=== PATIENT | male | born 1965 | race Caucasian/White ===

== ENCOUNTER 2016-11-01 18:37 | Emergency (ER) | payer BC, OTHER ==
[2016-11-01] MEDS ORDERED: Ketorolac 60 MG/2 ML SDV IM ONE (19:17)
--- NOTE | 2016-11-01 19:35 | EDM.PDOC ---
ED HPI GENERAL MEDICAL PROBLEM - General Chief Complaint: Back Pain or Injury Stated Complaint: BACK PAIN Time Seen by Provider: 11/01/16 19:05 - History of Present Illness INITIAL COMMENTS - FREE TEXT/NARRATIVE: HISTORY AND PHYSICAL: History of present illness: Patient 51-year-old white male presents status post injury to his left upper back this occurred this past Tuesday when he was wrestling playfully with another and was thrown onto his back he denies a tremor concern denies head or neck pain or trauma denies numbness weakness states is worse with movement and deep breaths Review of systems: As per history of present illness and below otherwise all systems reviewed and negative. Past medical history: As per history of present illness and as reviewed below otherwise noncontributory. Surgical history: As per history of present illness and as reviewed below otherwise noncontributory. Social history: No reported history of drug or alcohol abuse. Family history: As per history of present illness and as reviewed below otherwise noncontributory. Physical exam: HEENT: Atraumatic, normocephalic, pupils reactive, negative for conjunctival pallor or scleral icterus, mucous membranes moist, throat clear, neck supple, nontender, trachea midline. Lungs: Clear to auscultation, breath sounds equal bilaterally, chest nontender. Heart: S1S2, regular, negative for clicks, rubs, or JVD. Abdomen: Soft, nondistended, nontender. Negative for masses or hepatosplenomegaly. Negative for costovertebral tenderness. Pelvis: Stable nontender. Genitourinary: Deferred. Rectal: Deferred. Extremities: Atraumatic, negative for cords or calf pain. Neurovascular unremarkable. Neuro: Awake, alert, oriented. Cranial nerves II through XII unremarkable. Cerebellum unremarkable. Motor and sensory unremarkable throughout. Exam nonfocal. Back: Patient is a mild paravertebral tenderness at the level of the upper thoracic spine and also mild discomfort left superior posterior ribs no crepitation or point tenderness neurovascular exam seems unremarkable Diagnostics: X-ray thoracic spine left ribs with chest Therapeutics: Toradol 60 mg IM Impression: #1 upper back/lower left rib ( blunt force trauma) Definitive disposition and diagnosis as appropriate pending reevaluation and review of above. left shoulder Pain Score (Numeric/FACES): 4 - Related Data Allergies Allergy/AdvReac Type Severity Reaction Status Date / Time No Known Allergies Allergy Verified 12/20/16 12:40 [facility] Home Meds: Home Meds Cephalexin 500 mg PO Q6HR #30 capsule 08/17/16 [Rx] Past Medical History - Past Health History Medical/Surgical History: Denies Medical/Surgical History - Infectious Disease History Infectious Disease History: Reports: Chicken pox - Past Surgical History Musculoskeletal Surgical History: Reports: Other (see below) Other Musculoskeletal Surgeries/Procedures:: left hand surgery Social & Family History - Family History Family Medical History: Noncontributory - Tobacco Use Smoking Status *Q: Never Smoker Second Hand Smoke Exposure: No - Caffeine Use Caffeine Use: Reports: Coffee - Alcohol Use Days Per Week of Alcohol Use: 7 Number of Drinks Per Day: 1 Total Drinks Per Week: 7 - Recreational Drug Use Recreational Drug Use: No ED ROS GENERAL - Review of Systems Review Of Systems: ROS reveals no pertinent complaints other than HPI. ED EXAM, GENERAL - Physical Exam Exam: See Below (See dictation) Course - Vital Signs Last Recorded V/S: Last Vital Signs Temp 36.9 C 11/01/16 18:59 Pulse 85 11/01/16 18:59 Resp 16 11/01/16 18:59 BP 144/88 H 11/01/16 18:59 Pulse Ox 96 11/01/16 18:59 - Orders/Labs/Meds Orders: Active Orders 24 hr Category Date Time Status Chest 2V [CR] Stat Exams 11/01/16 19:15 Ordered Ribs 2V wo Chest Lt [CR] Stat Exams 11/01/16 19:15 Ordered Thoracic Spine 2V [CR] Stat Exams 11/01/16 19:17 Ordered Meds: Medications Discontinued Medications Generic Name Dose Route Start Last Admin Trade Name Callumq PRN Reason Stop Dose Admin Ketorolac Tromethamine 60 mg 11/01/16 19:17 Toradol IM 11/01/16 19:18 ONETIME ONE Departure - Departure Time of Disposition: 19:34 Disposition: Home, Self-Care 01 Condition: good Clinical Impression: Rib injury, Upper back pain, Contusion Forms: ED Department Discharge Additional Instructions: The following information is given to patients seen in the emergency department who are being discharged to home. This information is to outline your options for follow-up care. We provide all patients seen in our emergency department with a follow-up referral. The need for follow-up, as well as the timing and circumstances, are variable depending upon the specifics of your emergency department visit. If you don't have a primary care physician on staff, we will provide you with a referral. We always advise you to contact your personal physician following an emergency department visit to inform them of the circumstance of the visit and for follow-up with them and/or the need for any referrals to a consulting specialist. The emergency department will also refer you to a specialist when appropriate. This referral assures that you have the opportunity for followup care with a specialist. All of these measure are taken in an effort to provide you with optimal care, which includes your followup. Under all circumstances we always encourage you to contact your private physician who remains a resource for coordinating your care. When calling for followup care, please make the office aware that this follow-up is from your recent emergency room visit. If for any reason you are refused follow-up, please contact the [facility] emergency department at and asked to speak to the emergency department charge nurse. Kathrynrosyn as prescribed follow up primary medical doctor one to 2 days return as needed as discussed - My Orders Last 24 Hours: My Active Orders 11/01/16 19:15 Chest 2V [CR] Stat Ribs 2V wo Chest Lt [CR] Stat 11/01/16 19:17 Thoracic Spine 2V [CR] Stat - Assessment/Plan Last 24 Hours: My Active Orders 11/01/16 19:15 Chest 2V [CR] Stat Ribs 2V wo Chest Lt [CR] Stat 11/01/16 19:17 Thoracic Spine 2V [CR] Stat
[2016-11-01 20:15] VITALS: BP 135/90
--- NOTE | 2016-11-02 14:41 | CR ---
EXAM DATE: 11/01/16 PATIENT'S AGE: 51 Patient: GEOFFREY NIXON Facility: [place], [place] Site . Site : 1965 Study: XRay Chest [id number]/6/2017 7:41:38 PM Ordering Physician: Alexandra Bliss Final Report: HISTORY: Pain after wrestling on Tuesday. Pain starts between shoulder blades and absence of IV. FINDINGS: PA and lateral chest radiographs demonstrate a normal cardiac silhouette. Pulmonary vasculature is free cephalization. No consolidation is seen. There is identified in the posterior left costophrenic angle. The right is sharp. No pneumothorax is appreciated. There is cortical disruption in the anterior 4th rib. Lucency seen through the posterior left 5th rib. IMPRESSION: 1. Slight blunting of the posterior left costophrenic angle consistent with a tiny pleural effusion. 2. Nondisplaced fractures of the posterior left 5th and anterior left 4th ribs. Dictated by Flory Cook MD @ 11/01/2016 7:55:16 PM Dictated by: Flory Cook MD @ 11/01/2016 19:59:05 (Electronic Signature) Report Signed by Proxy and Original Signed Document filed in the Medical Record. [facility]
--- NOTE | 2016-11-02 14:47 | CR ---
EXAM DATE: 11/01/16 PATIENT'S AGE: 51 Patient: GEOFFREY NIXON Facility: [place], [place] Site . Site : 1965 Study: XRay Chest RIBS [id number]/6/2017 7:41:57 PM Ordering Physician: Alexandra Bliss Final Report: HISTORY: Pain after wrestling on Tuesday, pain between shoulder blades and wraps around chest to front of body. FINDINGS: Three views of the left ribs demonstrate a subtle cortical disruption of the posterior left 5th rib. There is cortical break through of the anterior left 4th rib. No pneumothorax is seen. IMPRESSION: Nondisplaced fractures of the anterior left 4th and posterior left 5th ribs. Dictated by Flory Cook MD @ 11/01/2016 7:56:40 PM Dictated by: Flory Cook MD @ 11/01/2016 19:57:09 (Electronic Signature) Report Signed by Proxy and Original Signed Document filed in the Medical Record. [facility]
--- NOTE | 2016-11-02 14:48 | CR ---
EXAM DATE: 11/01/16 PATIENT'S AGE: 51 Patient: GEOFFREY NIXON Facility: [place], [place] Site . Site : 1965 Study: XRay Spine Thoracic [id number]/6/2017 7:42:13 PM Ordering Physician: Alexandra Bliss Final Report: HISTORY: Pain after wrestling on Tuesday, pain starts between shoulder blades and wraps around chest to front of the body. FINDINGS: AP and lateral views of the thoracic spine demonstrate degenerative changes of the discs of the mid and lower thoracic spine. Vertebral body heights are maintained. No compression fracture is identified. 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 Dictated by Flory Cook MD @ 11/01/2016 7:58:56 PM Dictated by: Flory Cook MD @ 11/01/2016 19:59:00 (Electronic Signature) Report Signed by Proxy and Original Signed Document filed in the Medical Record. [facility]
== END 2016-11-01 20:26 | disposition home or self-care (01) ==
LOC: MW.ED 18:37
DX: S20.222A Contusion of left back wall of thorax, initial encounter (principal); Z98.890 Other specified postprocedural states; Y93.72 Activity, wrestling
CPT/HCPCS: 71020; 71100; 72070; 96372; 99283; J1885

== ENCOUNTER → 2016-11-26 | Outpatient (CLI) | payer OTHER ==
[2016-11-26 10:22] LABS: CHLORIDE,CL 106 mmol/L (98-110); SODIUM,NA 139 mmol/L (136-146)
== END ==
LOC: MW.CHRC 09:42
PROVIDERS: ATTEND Family Medicine
DX: Z00.00 Encounter for general adult medical examination without abnormal findings (principal); R50.9 Fever, unspecified
CPT/HCPCS: 36415; 80053; 80061; 85025; G0103

== ENCOUNTER → 2016-12-14 | Outpatient (CLI) | payer OTHER | END | disposition home or self-care (01) | LOC: MW.CHRC 09:00 | PROVIDERS: ATTEND Family Medicine | DX: R53.83 Other fatigue (principal) | CPT/HCPCS: 36415; 82607; 82652; 84402; 84403 ==

== ENCOUNTER 2017-02-07 07:43 | Day surgery (SDC) | payer OTHER ==
[~2017-02-07 07:43] MED LIST: Lactated Ringers 1,000 ML IV SCH; Midazolam 1 MG/ML 2 ML SDV ONE; Propofol 200 MG/20 ML SDV ONE; fentaNYL 100 MCG/2 ML SDV ONE
--- NOTE | 2017-02-07 08:23 | PCM.PREANE ---
Preanesthetic Assessment - Anesthesia/Transfusion/Family Hx Anesthesia History: Prior Anesthesia Without Reaction Family History of Anesthesia Reaction: No Transfusion History: No Prior Transfusion(s) Intubation History: Unknown - Review of Systems General: No Symptoms Pulmonary: No Symptoms Cardiovascular: No Symptoms Gastrointestinal: No symptoms Neurological: No Symptoms Other: Reports: None - Physical Assessment O2 Sat by Pulse Oximetry: 97 Respiratory Rate: 16 Vital Signs: Last Vital Signs Temp 36.3 C 02/07/17 08:07 Pulse 73 02/07/17 08:07 Resp 16 02/07/17 08:07 BP 127/87 02/07/17 08:07 Pulse Ox 97 02/07/17 08:07 Height: 1.78 m Weight: 90.718 kg ASA Class: 2 Mental Status: Alert & Oriented x3 Airway Class: Mallampati = 1 Dentition: Reports: Normal Dentition Thyro-Mental Finger Breadths: 3 Mouth Opening Finger Breadths: 3 ROM/Head Extension: Full Lungs: Clear to auscultation, Normal respiratory effort Cardiovascular: Regular Rate, Regular Rhythm - Allergies Allergies/Adverse Reactions: Allergies Allergy/AdvReac Type Severity Reaction Status Date / Time No Known Allergies Allergy Verified 08/17/16 12:40 RUST - Blood Blood Available: No - Anesthesia Plan Pre-Op Medication Ordered: None - Acknowledgements Anesthesia Type Planned: MAC Pt an Appropriate Candidate for the Planned Anesthesia: Yes Alternatives and Risks of Anesthesia Discussed w Pt/Guardian: Yes Pt/Guardian Understands and Agrees with Anesthesia Plan: Yes PreAnesthesia Questionnaire - Past Health History Medical/Surgical History: Denies Medical/Surgical History Respiratory History: Reports: Other (See Below) Other Respiratory History: has prescribed inhaler but denies any lung problems ( rare wheezings) - Infectious Disease History Infectious Disease History: Reports: Chicken Pox - Past Surgical History Head Surgeries/Procedures: Reports: None Dermatological Surgical History: Reports: Other (See Below) (repair of left wrist wound) - SUBSTANCE USE Smoking Status *Q: Never Smoker Tobacco Use Within Last Twelve Months: No Second Hand Smoke Exposure: No Days Per Week of Alcohol Use: 7 Number of Drinks Per Day: 1 Total Drinks Per Week: 7 Recreational Drug Use History: No - HOME MEDS Home Medications: Home Meds Albuterol [Proventil HFA] 2 puff INH ASDIRECTED PRN 02/04/17 [History] Multivitamin [Multivitamins] 1 tab PO DAILY 02/04/17 [History] - CURRENT (IN HOUSE) MEDS Current Meds: Current Medications Lactated Ringer's (Ringers, Lactated) 1,000 mls @ 125 mls/hr IV ASDIRECTED [facility] Last Admin: 02/07/17 08:13 Dose: 125 mls/hr Discontinued Medications Fentanyl (Sublimaze) Confirm Administered Dose 100 mcg .ROUTE .STK-MED ONE Stop: 02/07/17 07:22
[2017-02-07] MEDS ORDERED: fentaNYL 100 MCG/2 ML SDV ONE (08:30)
--- NOTE | 2017-02-07 09:54 | PCM.POSTAN ---
POST ANESTHESIA ASSESSMENT - MENTAL STATUS Mental Status: alert, oriented - RESPIRATORY Respiratory Status: respiratory rate WNL, airway patent, O2 saturation stable - CARDIOVASCULAR CV Status: pulse rate WNL, blood pressure stable - GASTROINTESTINAL GI Status: no symptoms - POST OP HYDRATION Hydration Status: adequate & stable - OBSERVATIONS Free Text/Narrative:: no anesthesia problems
[2017-02-07] MEDS ORDERED: Lactated Ringers 1,000 ML IV SCH (10:00)
--- NOTE | 2017-02-07 10:01 | PCM.OPNOTE ---
- General Post-Op/Procedure Note Date of Surgery/Procedure: 02/07/17 Operative Procedure(s): Colonoscopy Pre Op Diagnosis: Desire for colorectal cancer screening Post-Op Diagnosis: mild sigmoid diverticulosis Anesthesia Technique: MAC (ASA II) Primary Surgeon: Zaid Pro Condition: Good Free Text/Narrative:: Dictation [id number]
--- NOTE | 2017-02-07 11:14 | OR ---
SURGEON: Zaid Pro M.D. DATE OF PROCEDURE: 02/07/2017 OPERATION PERFORMED: Colonoscopy. ANESTHESIA: MAC. ASA CLASSIFICATION: II. PREOPERATIVE DIAGNOSIS: Desire for colorectal cancer screening. POSTOPERATIVE DIAGNOSIS: Mild sigmoid diverticulosis. DESCRIPTION OF PROCEDURE: The patient was taken to the endoscopy room and positioned on the endoscopy table in the left lateral decubitus position. Time-out was called for appropriate identification of the patient and procedure. Monitored anesthesia care was provided. The colonoscope was inserted into the rectum and advanced with minimal difficulty to the cecum, where the colonoscope was retroflexed to visualize the ascending colon from below. The cecum was identified by internal landmarks and external pressure. The colonoscope was then straightened and slowly withdrawn. The cecum, ascending colon, hepatic flexure, transverse colon, splenic flexure, descending colon showed no tumors, polyps, diverticula, or angiodysplasia. A few small scattered diverticula were noted in the sigmoid colon. No stricture, spasm, or bleeding was noted. No polyps were encountered. The colonoscope was withdrawn to the rectum and retroflexed to visualize the anal orifice from above. No tumors, polyps, or acute hemorrhoidal changes were noted. The colonoscope was then straightened, the rectum aspirated, and the colonoscope removed. The patient tolerated the procedure well and was taken to recovery room in stable condition. KANDI GREENE /[id number]
[2017-02-07 12:41] VITALS: BP 110/72
== END 2017-02-07 10:35 | disposition home or self-care (01) ==
LOC: MW.SDS 07:43
PROVIDERS: ATTEND Surgery
PROC: 0DJD8ZZ Inspection of Lower Intestinal Tract, Via Natural or Artificial Opening Endoscopic (ICD-10-PCS; principal; 2017-02-07)
DX: Z12.11 Encounter for screening for malignant neoplasm of colon (principal); K57.30 Diverticulosis of large intestine without perforation or abscess without bleeding; Z79.899 Other long term (current) drug therapy; Z98.890 Other specified postprocedural states
CPT/HCPCS: 45378; J2250; J3010; J7120; J2704

== ENCOUNTER 2017-07-06 07:49 | Day surgery (SDC) | payer OTHER ==
--- NOTE | 2017-07-06 07:41 | PCM.PREANE ---
Preanesthetic Assessment - Procedure Proposed Procedure: 5th digit right hand ORIF - Anesthesia/Transfusion/Family Hx Anesthesia History: Prior Anesthesia Without Reaction Transfusion History: No Prior Transfusion(s) Intubation History: Unknown - Review of Systems General: No Symptoms Pulmonary: Other (environmental allergens, pets - uses inhaler PRN) Cardiovascular: No Symptoms Gastrointestinal: No Symptoms Neurological: No Symptoms Other: Reports: None - Physical Assessment NPO Status Date: 07/05/17 NPO Status Time: 23:00 Height: 5 ft 11 in Weight: 200 lb ASA Class: 2 Mental Status: Alert & Oriented x3 Airway Class: Mallampati = 1 Dentition: Reports: Normal Dentition Thyro-Mental Finger Breadths: 3 Mouth Opening Finger Breadths: 3 ROM/Head Extension: Full Lungs: Clear to Auscultation, Normal Respiratory Effort Cardiovascular: Regular Rate, Regular Rhythm, No Murmurs - Allergies Allergies/Adverse Reactions: Allergies Allergy/AdvReac Type Severity Reaction Status Date / Time No Known Allergies Allergy Verified 08/17/16 12:40 MST - Blood Blood Available: No Product(s) Available: None - Acknowledgements Anesthesia Type Planned: General Anesthesia Pt an Appropriate Candidate for the Planned Anesthesia: Yes Alternatives and Risks of Anesthesia Discussed w Pt/Guardian: Yes Pt/Guardian Understands and Agrees with Anesthesia Plan: Yes PreAnesthesia Questionnaire - Past Health History Medical/Surgical History: Denies Medical/Surgical History HEENT History: Reports: Allergic Rhinitis Respiratory History: Reports: Other (See Below) Other Respiratory History: has prescribed inhaler but denies any lung problems ( rare wheezings) , allergy and pet induced - Infectious Disease History Infectious Disease History: Reports: Chicken Pox - Past Surgical History Head Surgeries/Procedures: Reports: None Musculoskeletal Surgical History: Reports: Other (See Below) Other Musculoskeletal Surgeries/Procedures:: left wrist surgery for wound closure Dermatological Surgical History: Reports: Other (See Below) - SUBSTANCE USE Smoking Status *Q: Never Smoker Tobacco Use Within Last Twelve Months: No Second Hand Smoke Exposure: No Days Per Week of Alcohol Use: 7 Number of Drinks Per Day: 1 Total Drinks Per Week: 7 Recreational Drug Use History: No - HOME MEDS Home Medications: Home Meds Albuterol [Proventil HFA] 2 puff INH ASDIRECTED PRN 02/04/17 [History] - CURRENT (IN HOUSE) MEDS Current Meds: Current Medications Hydrocodone Bitart/Acetaminophen ([place] 325-5 Mg) 1 tab PO Q4H PRN PRN Reason: Pain Bupivacaine HCl (Sensorcaine-Mpf 0.25%) 10 ml INJECT ONETIME ONE Stop: 07/06/17 09:01 Cefazolin Sodium/Dextrose 2 gm (/ Premix) 50 mls @ 100 mls/hr IV ONETIME ONE Stop: 07/06/17 08:29 Lactated Ringer's (Ringers, Lactated) 1,000 mls @ 125 mls/hr IV ASDIRECTED GENNY Discontinued Medications Bupivacaine HCl (Sensorcaine-Mpf 0.25%) Confirm Administered Dose 20 ml .ROUTE .STK-MED ONE Stop: 07/06/17 07:27 Cefazolin Sodium (Ancef) Confirm Administered Dose 2 gm .ROUTE .STK-MED ONE Stop: 07/06/17 07:09 Fentanyl (Sublimaze) Confirm Administered Dose 200 mcg .ROUTE .STK-MED ONE Stop: 07/06/17 07:05 Sodium Chloride (Normal Saline) Confirm Administered Dose 20 mls @ as directed .ROUTE .STK-MED ONE Stop: 07/06/17 07:09 Lidocaine (Xylocaine-Mpf 2%) Confirm Administered Dose 5 ml .ROUTE .STK-MED ONE Stop: 07/06/17 07:05 Midazolam HCl (Versed 1 Mg/Ml) Confirm Administered Dose 2 mg .ROUTE .STK-MED ONE Stop: 07/06/17 07:05 Ondansetron HCl (Zofran) Confirm Administered Dose 4 mg .ROUTE .STK-MED ONE Stop: 07/06/17 07:05 Propofol (Diprivan 20 Ml) Confirm Administered Dose 200 mg .ROUTE .STK-MED ONE Stop: 07/06/17 07:05
[~2017-07-06 07:49] MED LIST changes: +Bupivacaine 0.25% 10 ML SDV ONE; -Lactated Ringers 1,000 ML IV SCH; +Lidocaine 2% 5 ML SDV ONE; +Ondansetron 4 MG/2 ML SDV ONE; +Sodium Chloride 0.9% 20 ML ONE; +ceFAZolin 1 GM Vial ONE
[2017-07-06] MEDS ORDERED: Lactated Ringers 1,000 ML IV SCH (08:00)
[2017-07-06] MEDS ORDERED: Acetaminophen/HYDROcodone 325-5 MG Tab PO PRN (08:00)
[2017-07-06] MEDS ORDERED: ceFAZolin 2 GM in Premix Bag 1 BAG IV ONE (08:00)
[2017-07-06] MEDS ORDERED: Bupivacaine 0.25% 10 ML SDV INJECT ONE (09:00)
--- NOTE | 2017-07-06 09:57 | PCM.POSTAN ---
POST ANESTHESIA ASSESSMENT - MENTAL STATUS Mental Status: Alert, Oriented - RESPIRATORY Respiratory Status: Respiratory Rate WNL, Airway Patent, O2 Saturation Stable - CARDIOVASCULAR CV Status: Pulse Rate WNL, Blood Pressure Stable - GASTROINTESTINAL GI Status: No Symptoms - POST OP HYDRATION Hydration Status: Adequate & Stable
--- NOTE | 2017-07-06 10:34 | PCM48HPAN ---
Post Anesthesia Note - EVALUATION WITHIN 48HRS OF ANESTHETIC Vital Signs in Normal Range: Yes Patient Participated in Evaluation: Yes Respiratory Function Stable: Yes Airway Patent: Yes Cardiovascular Function Stable: Yes (BP at edge of hypertension range....advised to reassess periodically (PMD).) Hydration Status Stable: Yes Pain Control Satisfactory: Yes Nausea and Vomiting Control Satisfactory: Yes Mental Status Recovered: Yes
[2017-07-06 10:50] VITALS: BP 131/93
--- NOTE | 2017-07-06 16:20 | PCM.OPNOTE ---
- General Post-Op/Procedure Note Date of Surgery/Procedure: 07/06/17 Operative Procedure(s): open osteotomy and pin fixation of sequelae of 5th metacarpal fracture right Pre Op Diagnosis: sequelae of 5th metacarpal fracture right Post-Op Diagnosis: Same Anesthesia Technique: General LMA, Local Primary Surgeon: Nancy Cruz Command And Control Specialist: Li Pichardo Complications: None Condition: Good Free Text/Narrative:: Intake & Output 07/06/17 07/06/17 07/06/17 07:59 15:59 23:59 Intake Total 1400 Balance 1400
--- NOTE | 2017-07-08 13:15 | CR ---
EXAMINATION: Right hand HISTORY: Osteotomy COMPARISON: None TECHNIQUE: A total of 15 fluoroscopic images provided FINDINGS/IMPRESSION: Operative control films demonstrate postoperative changes and pinning of the fif th metacarpal.
--- NOTE | 2017-07-08 19:58 | OR ---
SURGEON: JEANNE QUESADA MD DATE OF PROCEDURE: 07/06/2017 PREOPERATIVE DIAGNOSIS: Sequelae of 5th metacarpal fracture on the right with inability to flex into palm. POSTOPERATIVE DIAGNOSIS: Sequelae of 5th metacarpal fracture on the right with inability to flex into palm. PROCEDURE: Open osteotomy and pin fixation of sequelae of 5th metacarpal fracture, right. PRODUCTS MECHANICAL DESIGN ENGINEER: HAILY Azevedo. ANESTHESIA: General LMA with local. INDICATIONS: Mr. Mclean is a 52-year-old gentleman who had multiple fractures previously to his right small finger. Risks and benefits of osteotomy and re-positioning to allow this to be in better position were discussed with him, and he was in agreement to proceed. He would just like to bring the hand down into his palm without difficulty. Risks and benefits of osteotomy, rotation, and then pin fixation were discussed with him. Risks were including, but not limited to bleeding, infection, damage to the underlying or overlying structures, possible need for future interventions, and possible scarring. PROCEDURE IN DETAIL: After informed consent was obtained and placed on the chart, the patient was brought to the operating theater and laid in a supine position. After adequate local MAC anesthetic was obtained, the area was prepped and draped and a time- out was completed to confirm side and site. Once adequately confirmed, attention was then paid to exsanguination of the arm and insufflation of the tourniquet. Attention was then paid to a 15-blade dissection on the lateral aspect of the dorsal side of the 5th metacarpal of the right hand. Dissection was carried through the skin and subcutaneous tissues taking care to preserve all neurovascular structures. Dissection was carried directly onto the bone, and a [place] elevator was then used to expose the bone completely. The previous fracture site was visualized, and a 0.5 cm bone saw was used to excise the planned amount of bone to allow rotation. The bone was placed in am appropriate position for the finger to be in maximum flexion to make a fist and allow full extension. Two 0.045 K-wires were placed then across the osteotomy and secured this in place. The finger was placed through range of motion, and excellent flexion and extension were appreciated. Once adequately pinned, the wound was then copiously irrigated. The tourniquet was desufflated and meticulous hemostasis was obtained and the skin was closed using deep Monocryl stitches and a running 5-0 nylon for the skin. It was dressed with Xeroform, fluffs, and a short-arm ulnar gutter plaster splint. The patient tolerated this well, and all counts and needles were correct at the end of the case. FOLLOWUP INSTRUCTIONS: The patient will see us in clinic in 10 to 14 days or sooner if any problems, questions, or concerns. He was given a prescription for pain control. SEBASTIAN / RAMONA /[id number]
== END 2017-07-06 10:45 | disposition home or self-care (01) ==
LOC: MW.SDS 07:49
PROVIDERS: ATTEND Plastic Surgery
DX: S62.326S Displaced fracture of shaft of fifth metacarpal bone, right hand, sequela (principal); Z79.899 Other long term (current) drug therapy
CPT/HCPCS: 26615; 76000; J0690; J2250; J2405; J3010; J7120; 01830; J2704

== ENCOUNTER 2017-09-24 20:39 | Emergency (ER) | payer OTHER ==
--- NOTE | 2017-09-24 20:57 | EDM.PDOC ---
ED HPI GENERAL MEDICAL PROBLEM - General Chief Complaint: Respiratory Problem Stated Complaint: COUGH Time Seen by Provider: 09/24/17 20:55 Source of Information: Reports: Patient History Limitations: Reports: No Limitations - History of Present Illness INITIAL COMMENTS - FREE TEXT/NARRATIVE: HISTORY AND PHYSICAL: History of present illness: Patient is a 52-year-old male who presents to the emergency room with complaints of cough 2 weeks. He states that he will get into "coughing fits "where he can feel popping to his lower lobes and is unable to catch his breath. He states "I coughed so hard that I feel like I might pass out". He denies any fever, chills, chest pain or shortness of breath. He denies any abdominal pain, nausea, vomiting or diarrhea. Not received the influenza vaccine this year Review of systems: As per history of present illness and below otherwise all systems reviewed and negative. Past medical history: As per history of present illness and as reviewed below otherwise noncontributory. Surgical history: As per history of present illness and as reviewed below otherwise noncontributory. Social history: No reported history of drug or alcohol abuse. Family history: As per history of present illness and as reviewed below otherwise noncontributory. Physical exam: General: Nontoxic appearing 52-year-old male. Alert and oriented. Appears in no acute distress HEENT: Atraumatic, normocephalic, pupils reactive, negative for conjunctival pallor or scleral icterus, mucous membranes moist, throat clear, neck supple, nontender, trachea midline. Lungs: Inspiratory wheezing noted to the right and left lower posterior lobes, breath sounds equal bilaterally, chest nontender. Heart: S1S2, regular, negative for clicks, rubs, or JVD. Abdomen: Soft, nondistended, nontender. Negative for masses or hepatosplenomegaly. Negative for costovertebral tenderness. Pelvis: Stable nontender. Genitourinary: Deferred. Rectal: Deferred. Extremities: Atraumatic, negative for cords or calf pain. Neurovascular unremarkable. Neuro: Awake, alert, oriented. Cranial nerves II through XII unremarkable. Cerebellum unremarkable. Motor and sensory unremarkable throughout. Exam nonfocal. Influenza is negative. Chest x-ray shows an infiltrate to the right lower lobe ( reading as negative) will treat with Zpack and Medrol Dose Mat. Follow up with PCP next week. Diagnostics: Influenza, chest x-ray Therapeutics: [] Impression: Bronchitis Plan: 1. Please take the antibiotic as directed. Medrol dosepak as directed. 2. Tylenol and/or ibuprofen as needed for pain and fever management. 3. Follow-up with your primary care provider next week. Return to the ED as needed and as discussed Definitive disposition and diagnosis as appropriate pending reevaluation and review of above. Duration: Week(s): Location: Reports: Chest - Related Data Allergies Allergy/AdvReac Type Severity Reaction Status Date / Time No Known Allergies Allergy Verified 09/24/17 20:53 Home Meds: Home Meds . [No Known Home Meds] 09/24/17 [History] Past Medical History - Past Health History Medical/Surgical History: Denies Medical/Surgical History HEENT History: Reports: Allergic Rhinitis Respiratory History: Reports: Other (See Below) Other Respiratory History: has prescribed inhaler but denies any lung problems ( rare wheezings) , allergy and pet induced - Infectious Disease History Infectious Disease History: Reports: Chicken Pox - Past Surgical History Head Surgeries/Procedures: Reports: None Musculoskeletal Surgical History: Reports: Other (See Below) Other Musculoskeletal Surgeries/Procedures:: left wrist surgery for wound closure Dermatological Surgical History: Reports: Other (See Below) Social & Family History - Family History Family Medical History: Noncontributory - Tobacco Use Smoking Status *Q: Never Smoker Second Hand Smoke Exposure: No - Caffeine Use Caffeine Use: Reports: Coffee - Alcohol Use Days Per Week of Alcohol Use: 7 Number of Drinks Per Day: 1 Total Drinks Per Week: 7 - Recreational Drug Use Recreational Drug Use: No Drug Use in Last 12 Months: No ED ROS GENERAL - Review of Systems Review Of Systems: ROS reveals no pertinent complaints other than HPI. ED EXAM, GENERAL - Physical Exam Exam: See Below (See dictation) Course - Vital Signs Last Recorded V/S: Last Vital Signs Temp 98.9 F 09/24/17 20:54 Pulse 96 09/24/17 20:54 Resp 18 09/24/17 20:54 BP 128/85 09/24/17 20:54 Pulse Ox 95 09/24/17 20:54 - Orders/Labs/Meds Orders: Active Orders 24 hr Category Date Time Status Chest 2V [CR] Stat Exams 09/24/17 20:40 Taken Azithromycin [Zithromax] Med 09/24/17 21:39 Once 500 mg PO ONETIME ONE Departure - Departure Time of Disposition: 21:40 Disposition: Home, Self-Care 01 Clinical Impression: Bronchitis - Discharge Information Instructions: Acute Bronchitis, [id number] Referrals: PCP,None [Primary Care Provider] - Forms: ED Department Discharge Additional Instructions: My general discharge The following information is given to patients seen in the emergency department who are being discharged to home. This information is to outline your options for follow-up care. We provide all patients seen in our emergency department with a follow-up referral. The need for follow-up, as well as the timing and circumstances, are variable depending upon the specifics of your emergency department visit. If you don't have a primary care physician on staff, we will provide you with a referral. We always advise you to contact your personal physician following an emergency department visit to inform them of the circumstance of the visit and for follow-up with them and/or the need for any referrals to a consulting specialist. The emergency department will also refer you to a specialist when appropriate. This referral assures that you have the opportunity for follow-up care with a specialist. All of these measure are taken in an effort to provide you with optimal care, which includes your follow-up. Under all circumstances we always encourage you to contact your private physician who remains a resource for coordinating your care. When calling for follow-up care, please make the office aware that this follow-up is from your recent emergency room visit. If for any reason you are refused follow-up, please contact the [facility] Emergency Department at and asked to speak to the emergency department charge nurse. [facility] [address] [place] [id number] 1. Please take the antibiotic as directed. Medrol dosepak as directed. 2. Tylenol and/or ibuprofen as needed for pain and fever management. 3. Follow-up with your primary care provider next week. Return to the ED as needed and as discussed - My Orders Last 24 Hours: My Active Orders 09/24/17 21:39 Azithromycin [Zithromax] 500 mg PO ONETIME ONE - Assessment/Plan Last 24 Hours: My Active Orders 09/24/17 21:39 Azithromycin [Zithromax] 500 mg PO ONETIME ONE
[2017-09-24] MEDS ORDERED: Azithromycin 250 MG Tab PO ONE (21:39)
[2017-09-24 22:05] VITALS: BP 116/86
--- NOTE | 2017-09-26 15:42 | CR ---
EXAM DATE: 09/24/17 PATIENT'S AGE: 52 Patient: GEOFFREY NIXON Facility: [place], [place] Site . Site : 1965 Study: XRay Chest [id number]/27/2018 9:12:31 PM Ordering Physician: Doctor Goel Final Report: INDICATIONS: Pain. Shortness of breath. Cough x2 weeks. TECHNIQUE: Chest 2 view. COMPARISON: None FINDINGS: No pneumothorax, pleural effusion or airspace consolidation. Cardiac and mediastinal contours are within normal limits. Upper abdomen and osseous structures show no acute abnormality. IMPRESSION: No evidence of acute cardiopulmonary disease. Dictated by Jon Brown MD @ 09/24/2017 9:28:23 PM Dictated by: Jon Brown MD @ 09/24/2017 21:28:28 (Electronic Signature) Report Signed by Proxy. [facility], [place]
== END 2017-09-24 21:50 | disposition home or self-care (01) ==
LOC: MW.ED 20:39
DX: J40 Bronchitis, not specified as acute or chronic (principal)
CPT/HCPCS: 71046; 87804; 99283; A9270

== ENCOUNTER 2017-10-17 04:42 | Emergency (ER) | payer OTHER ==
[2017-10-17] MEDS ORDERED: methylPREDNISolone Sodium Succinate 125 MG/2 ML SDV IM ONE (05:34)
[2017-10-17] MEDS ORDERED: Albuterol/Ipratropium 3.0-0.5 MG/3 ML Neb Soln NEB ONE (05:34)
[2017-10-17 06:14] LABS: CHLORIDE,CL 109 mmol/L (98-110); SODIUM,NA 143 mmol/L (136-146)
[2017-10-17 06:58] VITALS: BP 119/87
--- NOTE | 2017-10-17 07:04 | EDM.PDOC ---
ED HPI GENERAL MEDICAL PROBLEM - General Chief Complaint: General Stated Complaint: SHORTNESS OF BREATH Time Seen by Provider: 10/17/17 06:59 Source of Information: Reports: Patient - History of Present Illness INITIAL COMMENTS - FREE TEXT/NARRATIVE: HISTORY AND PHYSICAL: History of present illness: [ Generally healthy 52-year-old male presents with cough and intermittent wheezing shortness of breath no chest pain headache dizziness or palpitation no bowel or urine symptoms Patient has a history of previous pneumonia treated with azithromycin and Medrol Dosepak he also has pro-air inhaler which he has been using intermittently since had 2 puffs per day as needed States as if his lungs feel congested maybe there is fluid on his lungs ] Review of systems: As per history of present illness and below otherwise all systems reviewed and negative. Past medical history: As per history of present illness and as reviewed below otherwise noncontributory. Surgical history: As per history of present illness and as reviewed below otherwise noncontributory. Social history: No reported history of drug or alcohol abuse. Family history: As per history of present illness and as reviewed below otherwise noncontributory. Physical exam: HEENT: Atraumatic, normocephalic, pupils reactive, negative for conjunctival pallor or scleral icterus, mucous membranes moist, throat clear, neck supple, nontender, trachea midline. Lungs: Decreased breath sounds on the right with slight end expiratory wheeze, left is clear, chest nontender. Heart: S1S2, regular, negative for clicks, rubs, or JVD. Abdomen: Soft, nondistended, nontender. Negative for masses or hepatosplenomegaly. Negative for costovertebral tenderness. Pelvis: Stable nontender. Genitourinary: Deferred. Rectal: Deferred. Extremities: Atraumatic, negative for cords or calf pain. Neurovascular unremarkable. Neuro: Awake, alert, oriented. Cranial nerves II through XII unremarkable. Cerebellum unremarkable. Motor and sensory unremarkable throughout. Exam nonfocal. Diagnostics: [CBC CMP UA BN peptide Chest 2 views ] Therapeutics: [DuoNeb Levaquin 500 mg by mouth daily #10 no refill Prednisone taper Continue HFA 4 times a day 10 days ] Impression: [Acute bronchitis Slight infiltrate on chest x-ray ] Definitive disposition and diagnosis as appropriate pending reevaluation and review of above. - Related Data Allergies Allergy/AdvReac Type Severity Reaction Status Date / Time No Known Allergies Allergy Verified 10/17/17 04:54 Home Meds: Home Meds . [No Known Home Meds] 09/24/17 [History] Past Medical History - Past Health History Medical/Surgical History: Denies Medical/Surgical History HEENT History: Reports: Allergic Rhinitis Respiratory History: Reports: Pneumonia, Recurrent, Other (See Below) Other Respiratory History: has prescribed inhaler but denies any lung problems ( rare wheezings) , allergy and pet induced - Infectious Disease History Infectious Disease History: Reports: Chicken Pox - Past Surgical History Head Surgeries/Procedures: Reports: None Musculoskeletal Surgical History: Reports: Other (See Below) Other Musculoskeletal Surgeries/Procedures:: left wrist surgery for wound closure Dermatological Surgical History: Reports: Other (See Below) Social & Family History - Family History Family Medical History: Noncontributory - Tobacco Use Smoking Status *Q: Never Smoker Second Hand Smoke Exposure: No - Caffeine Use Caffeine Use: Reports: Coffee - Alcohol Use Days Per Week of Alcohol Use: 7 Number of Drinks Per Day: 1 Total Drinks Per Week: 7 - Recreational Drug Use Recreational Drug Use: No Drug Use in Last 12 Months: No ED ROS GENERAL - Review of Systems Review Of Systems: ROS reveals no pertinent complaints other than HPI. ED EXAM, GENERAL - Physical Exam Exam: See Below Course - Vital Signs Last Recorded V/S: Last Vital Signs Temp 98.1 F 10/17/17 06:57 Pulse 75 10/17/17 06:57 Resp 18 10/17/17 06:57 BP 119/87 10/17/17 06:57 Pulse Ox 96 10/17/17 06:57 - Orders/Labs/Meds Orders: Active Orders 24 hr Category Date Time Status EKG Documentation Completion [RC] STAT Care 10/17/17 05:28 Active RT Aerosol Therapy [RC] ASDIRECTED Care 10/17/17 05:34 Active Chest 1V Frontal [CR] Stat Exams 10/17/17 05:28 Taken Labs: Laboratory Tests 10/17/17 10/17/17 10/17/17 Range/Units 05:43 05:43 05:43 WBC 5.84 (4.0-11.0) K/uL RBC 5.34 (4.50-5.90) M/uL Hgb 15.7 (13.0-17.0) g/dL Hct 47.0 (38.0-50.0) % MCV 88.0 (80.0-98.0) fL MCH 29.4 (27.0-32.0) pg MCHC 33.4 (31.0-37.0) g/dL RDW Std Deviation 43.7 (28.0-62.0) fl RDW Coeff of [place]aya 14 (11.0-15.0) % Plt Count 218 (150-400) K/uL MPV 10.30 (7.40-12.00) fL Neut % (Auto) 45.5 L (48.0-80.0) % Lymph % (Auto) 37.8 (16.0-40.0) % [place] % (Auto) 9.2 (0.0-15.0) % Eos % (Auto) 7.0 (0.0-7.0) % Baso % (Auto) 0.5 (0.0-1.5) % Neut # (Auto) 2.7 (1.4-5.7) K/uL Lymph # (Auto) 2.2 (0.6-2.4) K/uL [place] # (Auto) 0.5 (0.0-0.8) K/uL Eos # (Auto) 0.4 (0.0-0.7) K/uL Baso # (Auto) 0.0 (0.0-0.1) K/uL Nucleated RBC % 0.0 /100WBC Nucleated RBCs # 0 K/uL Sodium 143 (136-146) mmol/L Potassium 4.7 (3.5-5.1) mmol/L Chloride 109 (98-110) mmol/L Carbon Dioxide 27 (21-31) mmol/L BUN 11 (6.0-23.0) mg/dL Creatinine 0.9 (0.6-1.5) mg/dL Est Cr Clr Drug Dosing 100.26 mL/min Estimated GFR (MDRD) > 60.0 ml/min Glucose 112 H (60-110) mg/dL Calcium 9.4 (8.8-10.8) mg/dL Total Bilirubin 0.5 (0.1-1.5) mg/dL AST 15 (5-40) IU/L ALT 22 (8-54) IU/L Alkaline Phosphatase 78 (40-150) Troponin I < 0.10 (0.0-0.29) NG/ML B-Natriuretic Peptide 23 (<100) PG/ML Total Protein 6.7 (6.0-8.0) g/dL Albumin 4.0 (3.5-5.0) g/dL Globulin 2.7 (2.0-3.5) g/dL Albumin/Globulin Ratio 1.5 (1.3-2.8) Meds: Medications Discontinued Medications Generic Name Dose Route Start Last Admin Trade Name [place] PRN Reason Stop Dose Admin Albuterol/Ipratropium 3 ml 10/17/17 05:34 10/17/17 05:56 Duoneb 3.0-0.5 Mg/3 Ml NEB 10/17/17 05:35 3 ml ONETIME ONE Administration Methylprednisolone Sodium Succinate 125 mg 10/17/17 05:34 10/17/17 05:54 Solu-Medrol IM 10/17/17 05:35 125 mg ONETIME ONE Administration Departure - Departure Time of Disposition: 07:02 Disposition: Home, Self-Care 01 Condition: Good Clinical Impression: Acute bronchitis, Pulmonary infiltrate on chest x-ray - Discharge Information Referrals: PCP,None [Primary Care Provider] - Additional Instructions: Medication as prescribed Return if symptoms persist or worsen Follow-up with primary care in 2 weeks Proair inhaler to be used 2 puffs 4 times daily 7-10 days and as needed [facility] - [facility] [address] [place] [id number] The following information is given to patients seen in the emergency department who are being discharged to home. This information is to outline your options for follow-up care. We provide all patients seen in our emergency department with a follow-up referral. The need for follow-up, as well as the timing and circumstances, are variable depending upon the specifics of your emergency department visit. If you don't have a primary care physician on staff, we will provide you with a referral. We always advise you to contact your personal physician following an emergency department visit to inform them of the circumstance of the visit and for follow-up with them and/or the need for any referrals to a consulting specialist. The emergency department will also refer you to a specialist when appropriate. This referral assures that you have the opportunity for follow-up care with a specialist. All of these measure are taken in an effort to provide you with optimal care, which includes your follow-up. Under all circumstances we always encourage you to contact your private physician who remains a resource for coordinating your care. When calling for follow-up care, please make the office aware that this follow-up is from your recent emergency room visit. If for any reason you are refused follow-up, please contact the [facility] emergency department at and asked to speak to the emergency department charge nurse. - My Orders Last 24 Hours: My Active Orders 10/17/17 05:28 EKG Documentation Completion [RC] STAT Chest 1V Frontal [CR] Stat 10/17/17 05:34 RT Aerosol Therapy [RC] ASDIRECTED - Assessment/Plan Last 24 Hours: My Active Orders 10/17/17 05:28 EKG Documentation Completion [RC] STAT Chest 1V Frontal [CR] Stat 10/17/17 05:34 RT Aerosol Therapy [RC] ASDIRECTED
--- NOTE | 2017-10-17 19:08 | CR ---
EXAM DATE: 10/17/17 PATIENT'S AGE: 52 Patient: GEOFFREY NIXON Facility: [place], [place] Site . Site : 1965 Study: XRay Chest [id number]/19/2018 5:49:32 AM Ordering Physician: Doctor Goel Final Report: INDICATION: Shortness of breath, chest pain TECHNIQUE: Chest radiograph 1 view COMPARISON: 09/24/17 FINDINGS: Mediastinum: The heart silhouette is normal in size and morphology. The mediastinum is normal in appearance. Lungs: Both lungs are unremarkable in appearance. No sign of pleural effusion seen. No pneumothorax is identified. Bones and soft tissue: Unremarkable for age. IMPRESSION: 1. No acute cardiopulmonary disease is seen. Dictated by: Tristen Marshall MD @ 10/17/2017 05:51:04 (Electronic Signature) Report Signed by Proxy. [facility]
== END 2017-10-17 07:12 | disposition home or self-care (01) ==
LOC: MW.ED 04:42
DX: J20.9 Acute bronchitis, unspecified (principal); R91.8 Other nonspecific abnormal finding of lung field
CPT/HCPCS: 36415; 71045; 80053; 83880; 84484; 85025; 93005; 94640; 96372; 99284; J2930; 99283

== ENCOUNTER 2018-04-18 15:39 | Emergency (ER) | payer OTHER ==
[2018-04-18 16:00] VITALS: BP 124/81
--- NOTE | 2018-04-18 16:04 | EDM.PDOC ---
ED HPI GENERAL MEDICAL PROBLEM - General Chief Complaint: Lower Extremity Injury/Pain Stated Complaint: RT KNEE IS SWOLLEN Time Seen by Provider: 04/18/18 15:51 Source of Information: Reports: Patient History Limitations: Reports: No Limitations - History of Present Illness INITIAL COMMENTS - FREE TEXT/NARRATIVE: HISTORY AND PHYSICAL: History of present illness: Patient is a 53-year-old male who presents to the emergency room with complaints of right knee pain. He states he was ambulating and "twisted wrong" and felt like he hyperextended his right knee. This happened approximately 6 hours ago. Since that time he continued working and weightbearing. He states that he feels like his knee is "full" and has discomfort with ambulation. Denies any numbness or tingling to the distal extremity. Denies any previous injury or trauma of the affected extremity. Review of systems: As per history of present illness and below otherwise all systems reviewed and negative. Past medical history: As per history of present illness and as reviewed below otherwise noncontributory. Surgical history: As per history of present illness and as reviewed below otherwise noncontributory. Social history: No reported history of drug or alcohol abuse. Family history: As per history of present illness and as reviewed below otherwise noncontributory. Physical exam: General: Well-developed and well-nourished 53-year-old male. Alert and oriented. Nontoxic appearing and in no acute distress. HEENT: Atraumatic, normocephalic, pupils equal and reactive bilaterally, negative for conjunctival pallor or scleral icterus, mucous membranes moist, throat clear, neck supple, nontender, trachea midline. No drooling or trismus noted. No meningeal signs Lungs: Clear to auscultation, breath sounds equal bilaterally, chest nontender. Heart: S1S2, regular rate and rhythm without overt murmur Abdomen: Soft, nondistended, nontender. Negative for masses or hepatosplenomegaly. Negative for costovertebral tenderness. Pelvis: Stable nontender. Genitourinary: Deferred. Rectal: Deferred. Skin: Mild soft tissue swelling noted to right lateral knee. No errythema or bruising. Intact, warm, dry. No lesions or rashes noted. Extremities: Moves all per self, no knee instability noted, ambulatory and weight bearing. Pain with palpation to lateral knee. He is negative for cords or calf pain. Neurovascular unremarkable. Neuro: Awake, alert, oriented. Cranial nerves II through XII unremarkable. Cerebellum unremarkable. Motor and sensory unremarkable throughout. Exam nonfocal. Notes: We did discuss the limitations of x-ray. Xray shows no fractures or dislocations. Encouraged him to follow-up with the orthopedic provider for further evaluation and management. Will give a patella cut out knee brace along with crutches for comfort care. Supportive care measures were reviewed and discussed. Patient voices understanding and is agreeable to plan of care. Denies any further questions or concerns at this time. Diagnostics: X-ray Therapeutics: Toradol IM, Crutches, Patella Knee Brace Prescription: None Impression: Right knee injury Plan: 1. Rest, ice, elevate the affected extremity. 2. Tylenol and/or ibuprofen as needed for pain management. Use the knee sleeve and crutches as directed. 3. Follow-up with your primary care provider or the orthopedic provider in the next 1-2 days. Return to the ED as needed and as discussed. Definitive disposition and diagnosis as appropriate pending reevaluation and review of above. Right knee Pain Score (Numeric/FACES): 3 - Related Data Allergies Allergy/AdvReac Type Severity Reaction Status Date / Time No Known Allergies Allergy Verified 04/18/18 15:52 Home Meds: Home Meds . [No Known Home Meds] 09/24/17 [History] Past Medical History - Past Health History Medical/Surgical History: Denies Medical/Surgical History HEENT History: Reports: Allergic Rhinitis Respiratory History: Reports: Pneumonia, Recurrent, Other (See Below) Other Respiratory History: has prescribed inhaler but denies any lung problems ( rare wheezings) , allergy and pet induced - Infectious Disease History Infectious Disease History: Reports: Chicken Pox - Past Surgical History Head Surgeries/Procedures: Reports: None Musculoskeletal Surgical History: Reports: Other (See Below) Other Musculoskeletal Surgeries/Procedures:: left wrist surgery for wound closure Dermatological Surgical History: Reports: Other (See Below) Social & Family History - Family History Family Medical History: Noncontributory - Tobacco Use Smoking Status *Q: Never Smoker - Caffeine Use Caffeine Use: Reports: None - Recreational Drug Use Recreational Drug Use: No Review of Systems - Review of Systems Review Of Systems: ROS reveals no pertinent complaints other than HPI. ED EXAM, GENERAL - Physical Exam Exam: See Below (See dictation) Course - Vital Signs Last Recorded V/S: Last Vital Signs Temp 97.2 F 04/18/18 15:53 Pulse 83 04/18/18 15:53 Resp 16 04/18/18 15:53 BP 124/81 04/18/18 15:53 Pulse Ox 96 04/18/18 15:53 - Orders/Labs/Meds Orders: Active Orders 24 hr Category Date Time Status Knee 3V Rt [CR] Stat Exams 04/18/18 15:52 Taken DME for Discharge [COMM] Stat Oth 04/18/18 16:30 Ordered Meds: Medications Discontinued Medications Generic Name Dose Route Start Last Admin Trade Name Freq PRN Reason Stop Dose Admin Ketorolac Tromethamine 60 mg 04/18/18 16:07 Toradol IM 04/18/18 16:08 ONETIME ONE Departure - Departure Time of Disposition: 16:32 Disposition: Home, Self-Care 01 Clinical Impression: Right knee injury Qualifiers: Encounter type: initial encounter Qualified Code(s): S89.91XA - Unspecified injury of right lower leg, initial encounter - Discharge Information Instructions: Knee Sprain, Adult Forms: ED Department Discharge Additional Instructions: The following information is given to patients seen in the emergency department who are being discharged to home. This information is to outline your options for follow-up care. We provide all patients seen in our emergency department with a follow-up referral. The need for follow-up, as well as the timing and circumstances, are variable depending upon the specifics of your emergency department visit. If you don't have a primary care physician on staff, we will provide you with a referral. We always advise you to contact your personal physician following an emergency department visit to inform them of the circumstance of the visit and for follow-up with them and/or the need for any referrals to a consulting specialist. The emergency department will also refer you to a specialist when appropriate. This referral assures that you have the opportunity for follow-up care with a specialist. All of these measure are taken in an effort to provide you with optimal care, which includes your follow-up. Under all circumstances we always encourage you to contact your private physician who remains a resource for coordinating your care. When calling for follow-up care, please make the office aware that this follow-up is from your recent emergency room visit. If for any reason you are refused follow-up, please contact the [facility] Emergency Department at and asked to speak to the emergency department charge nurse. [facility] Primary Care [address] [place] [id number] [facility] Specialty Care - Orthopedic Clinic Professional [facility] [address] [place] [address], [address] [place] [address] 1. Rest, ice, elevate the affected extremity. 2. Tylenol and/or ibuprofen as needed for pain management. Use the knee sleeve and crutches as directed. 3. Follow-up with your primary care provider or the orthopedic provider in the next 1-2 days. Return to the ED as needed and as discussed. - My Orders Last 24 Hours: My Active Orders 04/18/18 15:52 Knee 3V Rt [CR] Stat 04/18/18 16:30 DME for Discharge [COMM] Stat - Assessment/Plan Last 24 Hours: My Active Orders 04/18/18 15:52 Knee 3V Rt [CR] Stat 04/18/18 16:30 DME for Discharge [COMM] Stat
[2018-04-18] MEDS ORDERED: Ketorolac 60 MG/2 ML SDV IM ONE (16:07)
--- NOTE | 2018-04-19 11:02 | CR ---
EXAM DATE: 04/18/18 PATIENT'S AGE: 53 Patient: GEOFFREY NIXON Facility: [place], [place] Site . Site : 1965 Study: XRay Knee Right [id number]/[id number] 4:15:21 PM Ordering Physician: Doctor Goel Final Report: INDICATION: Hyperextended knee today swelling TECHNIQUE: Knee radiograph 3 views right COMPARISON: None FINDINGS: Bone: No acute fractures or aggressive bone lesions are identified. Joint: The joint spaces of the medial, lateral, and patellofemoral compartments are unremarkable. No significant knee effusion is seen. Soft tissue: Unremarkable. No radiopaque foreign bodies are seen. IMPRESSION: 1. No acute osseous injuries or abnormalities are noted. Dictated by: Tristen Marshall MD @ 04/18/2018 16:39:38 (Electronic Signature) Report Signed by Proxy. ATUL
== END 2018-04-18 16:56 | disposition home or self-care (01) ==
LOC: MW.ED 15:39
DX: S89.91XA Unspecified injury of right lower leg, initial encounter (principal); X50.1XXA Overexertion from prolonged static or awkward postures, initial encounter
CPT/HCPCS: 73562; 96372; 99283; J1885

== ENCOUNTER 2018-11-29 09:47 | Emergency (ER) | payer BC ==
[2018-11-29 09:55] VITALS: BP 119/88
[2018-11-29] MEDS ORDERED: Ketorolac 60 MG/2 ML SDV IM ONE (10:12)
--- NOTE | 2018-11-29 10:53 | CR ---
EXAMINATION: Right shoulder HISTORY: Pain COMPARISON: None TECHNIQUE: 3 views FINDINGS/IMPRESSION: There is no acute osseous abnormality, dislocation, or fracture. Bone mineralization and joint spaces are preserved. Minimal acromioclavicular obstetric changes are noted.
--- NOTE | 2018-11-29 10:59 | EDM.PDOC ---
ED HPI GENERAL MEDICAL PROBLEM - General Chief Complaint: Upper Extremity Injury/Pain Stated Complaint: rt shoulder pain Time Seen by Provider: 11/29/18 10:08 Source of Information: Reports: Patient History Limitations: Reports: No Limitations - History of Present Illness INITIAL COMMENTS - FREE TEXT/NARRATIVE: History of present illness: []Patient complains of right shoulder pain after working a long excessive shift over the weekend. Number specific movement or time where he had sudden pain in her shoulder but his shoulder gradually started hurting. It has been worsening since. She denies any numbness, tingling, neck pain or any other injuries. Review of systems: As per history of present illness and below otherwise all systems reviewed and negative. Past medical history: As per history of present illness and as reviewed below otherwise noncontributory. Surgical history: As per history of present illness and as reviewed below otherwise noncontributory. Social history: No reported history of drug or alcohol abuse. Family history: As per history of present illness and as reviewed below otherwise noncontributory. Physical exam: General: Well developed, well nourished in NAD HEENT: Atraumatic, normocephalic, pupils reactive, negative for conjunctival pallor or scleral icterus, mucous membranes moist, throat clear, neck supple, nontender, trachea midline. Lungs: Clear to auscultation, breath sounds equal bilaterally, chest nontender. Heart: S1S2, regular, negative for clicks, rubs, or JVD. Abdomen: NABS, Soft, nondistended, nontender. Negative for masses or hepatosplenomegaly. Negative for costovertebral tenderness. Pelvis: Stable nontender. Genitourinary: Deferred. Rectal: Deferred. Extremities: Atraumatic, and her palpation of the right shoulder joint, there is no clavicular tenderness, neck or back tenderness to palpation negative for cords or calf pain. Neurovascular unremarkable. Neuro: Awake, alert, oriented. Cranial nerves II through XII unremarkable. Cerebellum unremarkable. Motor and sensory unremarkable throughout. Exam nonfocal. Skin:warm and dry Diagnostics: Right shoulder x-ray negative Therapeutics: Toradol, arm sling ED Course: Stable Impression: Right shoulder pain Prescriptions: Diclofenac Plan: Take meds as directed, follow up with your primary care physician, return to ER if symptoms worsen or change. Definitive disposition and diagnosis as appropriate pending reevaluation and review of above. - Related Data Allergies Allergy/AdvReac Type Severity Reaction Status Date / Time No Known Allergies Allergy Verified 11/29/18 09:55 Home Meds: Home Meds Diclofenac Sodium [Voltaren] 75 mg PO BIDMEALS PRN #20 tab.cr 11/29/18 [Rx] Past Medical History - Past Health History Medical/Surgical History: Denies Medical/Surgical History HEENT History: Reports: Allergic Rhinitis Respiratory History: Reports: Pneumonia, Recurrent, Other (See Below) Other Respiratory History: has prescribed inhaler but denies any lung problems ( rare wheezings) , allergy and pet induced - Infectious Disease History Infectious Disease History: Reports: Chicken Pox - Past Surgical History Head Surgeries/Procedures: Reports: None Musculoskeletal Surgical History: Reports: Other (See Below) Other Musculoskeletal Surgeries/Procedures:: left wrist surgery for wound closure Dermatological Surgical History: Reports: Other (See Below) Social & Family History - Family History Family Medical History: Noncontributory - Tobacco Use Smoking Status *Q: Never Smoker - Caffeine Use Caffeine Use: Reports: None - Recreational Drug Use Recreational Drug Use: No Review of Systems - Review of Systems Review Of Systems: ROS reveals no pertinent complaints other than HPI. ED EXAM, GENERAL - Physical Exam Exam: See Below (See history of present illness) Course - Vital Signs Last Recorded V/S: Last Vital Signs Temp 96.8 F 11/29/18 09:54 Pulse 99 11/29/18 09:54 Resp 18 11/29/18 09:54 BP 119/88 11/29/18 09:54 Pulse Ox 99 11/29/18 09:54 - Orders/Labs/Meds Meds: Medications Discontinued Medications Generic Name Dose Route Start Last Admin Trade Name Freq PRN Reason Stop Dose Admin Ketorolac Tromethamine 60 mg 11/29/18 10:12 11/29/18 10:22 Toradol IM 11/29/18 10:13 60 mg ONETIME ONE Administration Departure - Departure Time of Disposition: 10:58 Disposition: Home, Self-Care 01 Condition: Good Clinical Impression: Shoulder pain, right Qualifiers: Chronicity: acute Qualified Code(s): M25.511 - Pain in right shoulder - Discharge Information *PRESCRIPTION DRUG MONITORING PROGRAM REVIEWED*: No *COPY OF PRESCRIPTION DRUG MONITORING REPORT IN PATIENT YUE: No Prescriptions: Diclofenac Sodium [Voltaren] 75 mg PO BIDMEALS PRN #20 tab.cr PRN Reason: Pain Referrals: PCP,Unknown [Primary Care Provider] - Forms: ED Department Discharge Additional Instructions: The following information is given to patients seen in the emergency department who are being discharged to home. This information is to outline your options for follow-up care. We provide all patients seen in our emergency department with a follow-up referral. The need for follow-up, as well as the timing and circumstances, are variable depending upon the specifics of your emergency department visit. If you don't have a primary care physician on staff, we will provide you with a referral. We always advise you to contact your personal physician following an emergency department visit to inform them of the circumstance of the visit and for follow-up with them and/or the need for any referrals to a consulting specialist. The emergency department will also refer you to a specialist when appropriate. This referral assures that you have the opportunity for follow-up care with a specialist. All of these measure are taken in an effort to provide you with optimal care, which includes your follow-up. Under all circumstances we always encourage you to contact your private physician who remains a resource for coordinating your care. When calling for follow-up care, please make the office aware that this follow-up is from your recent emergency room visit. If for any reason you are refused follow-up, please contact the [facility] Emergency Department at and asked to speak to the emergency department charge nurse. Take meds as directed, follow up with your primary care physician, return to ER if symptoms worsen or change. [facility] Primary [facility] [address] [place] [id number]
== END 2018-11-29 11:08 | disposition home or self-care (01) ==
LOC: MW.ED 09:47
DX: M25.511 Pain in right shoulder (principal)
CPT/HCPCS: 73030; 96372; 99283; J1885; 99282

== ENCOUNTER 2019-05-05 02:41 | Emergency (ER) | payer BC ==
[2019-05-05 02:55] VITALS: BP 101/72
--- NOTE | 2019-05-05 02:56 | EDM.PDOC ---
ED HPI GENERAL MEDICAL PROBLEM - General Chief Complaint: General Stated Complaint: MEDICAL CLEARANCE Time Seen by Provider: 05/05/19 02:54 - History of Present Illness INITIAL COMMENTS - FREE TEXT/NARRATIVE: HISTORY AND PHYSICAL: History of present illness: Patient 54-year-old white male who presents in custody of law enforcement for medical clearance patient has no complaints Review of systems: As per history of present illness and below otherwise all systems reviewed and negative. Past medical history: As per history of present illness and as reviewed below otherwise noncontributory. Surgical history: As per history of present illness and as reviewed below otherwise noncontributory. Social history: No reported history of drug or alcohol abuse. Family history: As per history of present illness and as reviewed below otherwise noncontributory. Physical exam: HEENT: Atraumatic, normocephalic, pupils reactive, negative for conjunctival pallor or scleral icterus, mucous membranes moist, throat clear, neck supple, nontender, trachea midline. Lungs: Clear to auscultation, breath sounds equal bilaterally, chest nontender. Heart: S1S2, regular, negative for clicks, rubs, or JVD. Abdomen: Soft, nondistended, nontender. Negative for masses or hepatosplenomegaly. Negative for costovertebral tenderness. Pelvis: Stable nontender. Genitourinary: Deferred. Rectal: Deferred. Extremities: Atraumatic, negative for cords or calf pain. Neurovascular unremarkable. Neuro: Awake, alert, oriented. Cranial nerves II through XII unremarkable. Cerebellum unremarkable. Motor and sensory unremarkable throughout. Exam nonfocal. Diagnostics: None Therapeutics: None Impression: #1 medical clearance for incarceration Definitive disposition and diagnosis as appropriate pending reevaluation and review of above. - Related Data Allergies Allergy/AdvReac Type Severity Reaction Status Date / Time No Known Allergies Allergy Verified 05/05/19 02:53 Home Meds: Home Meds Diclofenac Sodium [Voltaren] 75 mg PO BIDMEALS PRN #20 tab.cr 11/29/18 [Rx] Past Medical History - Past Health History Medical/Surgical History: Denies Medical/Surgical History HEENT History: Reports: Allergic Rhinitis Respiratory History: Reports: Pneumonia, Recurrent, Other (See Below) Other Respiratory History: has prescribed inhaler but denies any lung problems ( rare wheezings) , allergy and pet induced - Infectious Disease History Infectious Disease History: Reports: Chicken Pox - Past Surgical History Head Surgeries/Procedures: Reports: None Musculoskeletal Surgical History: Reports: Other (See Below) Other Musculoskeletal Surgeries/Procedures:: left wrist surgery for wound closure Dermatological Surgical History: Reports: Other (See Below) Social & Family History - Family History Family Medical History: Noncontributory - Caffeine Use Caffeine Use: Reports: None ED ROS GENERAL - Review of Systems Review Of Systems: ROS reveals no pertinent complaints other than HPI. ED EXAM, GENERAL - Physical Exam Exam: See Below (See dictation) Departure - Departure Time of Disposition: 02:55 Disposition: Home, Self-Care 01 Condition: Good Clinical Impression: Medical clearance for incarceration - Discharge Information Referrals: PCP,None [Primary Care Provider] - Additional Instructions: The following information is given to patients seen in the emergency department who are being discharged to home. This information is to outline your options for follow-up care. We provide all patients seen in our emergency department with a follow-up referral. The need for follow-up, as well as the timing and circumstances, are variable depending upon the specifics of your emergency department visit. If you don't have a primary care physician on staff, we will provide you with a referral. We always advise you to contact your personal physician following an emergency department visit to inform them of the circumstance of the visit and for follow-up with them and/or the need for any referrals to a consulting specialist. The emergency department will also refer you to a specialist when appropriate. This referral assures that you have the opportunity for followup care with a specialist. All of these measure are taken in an effort to provide you with optimal care, which includes your followup. Under all circumstances we always encourage you to contact your private physician who remains a resource for coordinating your care. When calling for followup care, please make the office aware that this follow-up is from your recent emergency room visit. If for any reason you are refused follow-up, please contact the [facility] emergency department at and asked to speak to the emergency department charge nurse. Follow-up primary medical doctor as needed as discussed to return as needed as discussed
== END 2019-05-05 03:02 ==
LOC: MW.ED 02:41
DX: Z02.89 Encounter for other administrative examinations (principal)
CPT/HCPCS: 99282; 99283

== ENCOUNTER 2019-07-25 12:11 | Emergency (ER) | payer OTHER ==
--- NOTE | 2019-07-25 12:18 | EDM.PDOC ---
ED HPI GENERAL MEDICAL PROBLEM - General Stated Complaint: BLOOD INFECTION Time Seen by Provider: 07/25/19 12:14 - History of Present Illness INITIAL COMMENTS - FREE TEXT/NARRATIVE: HISTORY AND PHYSICAL: History of present illness: Patient 54-year-old white male in custody of law enforcement who presents for medical clearance was no complaint Review of systems: As per history of present illness and below otherwise all systems reviewed and negative. Past medical history: As per history of present illness and as reviewed below otherwise noncontributory. Surgical history: As per history of present illness and as reviewed below otherwise noncontributory. Social history: No reported history of drug or alcohol abuse. Family history: As per history of present illness and as reviewed below otherwise noncontributory. Physical exam: HEENT: Atraumatic, normocephalic, pupils reactive, negative for conjunctival pallor or scleral icterus, mucous membranes moist, throat clear, neck supple, nontender, trachea midline. Lungs: Clear to auscultation, breath sounds equal bilaterally, chest nontender. Heart: S1S2, regular, negative for clicks, rubs, or JVD. Abdomen: Soft, nondistended, nontender. Negative for masses or hepatosplenomegaly. Negative for costovertebral tenderness. Pelvis: Stable nontender. Genitourinary: Deferred. Rectal: Deferred. Extremities: Atraumatic, negative for cords or calf pain. Neurovascular unremarkable. Neuro: Awake, alert, oriented. Cranial nerves II through XII unremarkable. Cerebellum unremarkable. Motor and sensory unremarkable throughout. Exam nonfocal. Diagnostics: None Therapeutics: None Impression: #1 medical clearance for incarceration Definitive disposition and diagnosis as appropriate pending reevaluation and review of above. - Related Data Allergies Allergy/AdvReac Type Severity Reaction Status Date / Time No Known Allergies Allergy Verified 05/05/19 02:53 Home Meds: Home Meds Diclofenac Sodium [Voltaren] 75 mg PO BIDMEALS PRN #20 tab.cr 11/29/18 [Rx] Past Medical History - Past Health History Medical/Surgical History: Denies Medical/Surgical History HEENT History: Reports: Allergic Rhinitis Cardiovascular History: Reports: None Respiratory History: Reports: Pneumonia, Recurrent, Other (See Below) Other Respiratory History: has prescribed inhaler but denies any lung problems ( rare wheezings) , allergy and pet induced Gastrointestinal History: Reports: None Genitourinary History: Reports: None Musculoskeletal History: Reports: None Neurological History: Reports: None Psychiatric History: Reports: None Endocrine/Metabolic History: Reports: None Insulin Pump Model and Jewel Waxer: N/A Hematologic History: Reports: None Immunologic History: Reports: None Oncologic (Cancer) History: Reports: None Dermatologic History: Reports: None - Infectious Disease History Infectious Disease History: Reports: Chicken Pox - Past Surgical History Head Surgeries/Procedures: Reports: None Musculoskeletal Surgical History: Reports: Other (See Below) Other Musculoskeletal Surgeries/Procedures:: left wrist surgery for wound closure Dermatological Surgical History: Reports: Other (See Below) Social & Family History - Family History Family Medical History: Noncontributory - Caffeine Use Caffeine Use: Reports: None ED ROS GENERAL - Review of Systems Review Of Systems: Comprehensive ROS is negative, except as noted in HPI. ED EXAM, GENERAL - Physical Exam Exam: See Below (See dictation) Departure - Departure Time of Disposition: 12:17 Disposition: Home, Self-Care 01 Condition: Good Clinical Impression: Medical clearance for incarceration - Discharge Information Additional Instructions: The following information is given to patients seen in the emergency department who are being discharged to home. This information is to outline your options for follow-up care. We provide all patients seen in our emergency department with a follow-up referral. The need for follow-up, as well as the timing and circumstances, are variable depending upon the specifics of your emergency department visit. If you don't have a primary care physician on staff, we will provide you with a referral. We always advise you to contact your personal physician following an emergency department visit to inform them of the circumstance of the visit and for follow-up with them and/or the need for any referrals to a consulting specialist. The emergency department will also refer you to a specialist when appropriate. This referral assures that you have the opportunity for followup care with a specialist. All of these measure are taken in an effort to provide you with optimal care, which includes your followup. Under all circumstances we always encourage you to contact your private physician who remains a resource for coordinating your care. When calling for followup care, please make the office aware that this follow-up is from your recent emergency room visit. If for any reason you are refused follow-up, please contact the [facility] emergency department at and asked to speak to the emergency department charge nurse. Follow-up primary medical doctor as needed as discussed return as needed as discussed
[2019-07-25 12:23] VITALS: BP 134/92; PULSE 93
[2019-07-25] MEDS ORDERED: cefTRIAXone 1 GM in Lidocaine 1% 4 ML IM ONE (12:32)
== END 2019-07-25 12:52 | disposition home or self-care (01) ==
LOC: MW.ED 12:11
DX: Z02.89 Encounter for other administrative examinations (principal)
CPT/HCPCS: 96372; 99283; J0696; J2001

== ENCOUNTER 2019-08-11 14:27 | Emergency (ER) | payer SELFPAY ==
[2019-08-11] MEDS ORDERED: Albuterol/Ipratropium 3.0-0.5 MG/3 ML Neb Soln NEB ONE (14:30)
[2019-08-11] MEDS ORDERED: methylPREDNISolone Sodium Succinate 125 MG/2 ML SDV IVPUSH ONE (14:33)
[2019-08-11] MEDS ORDERED: Sodium Chloride 0.9% 1,000 ML IV SCH (14:45)
[2019-08-11 15:18] VITALS: BP 145/92; PULSE 90
[2019-08-11 15:31] LABS: BLOOD UREA NITROGEN,BUN 16 mg/dL (7.0-18.0); CARBON DIOXIDE,CO2 25.8 mmol/L (21.0-32.0); CHLORIDE,CL 105 mmol/L (98-107); GLUCOSE RANDOM 123 mg/dL (74-106); POTASSIUM,K 4.1 mmol/L (3.5-5.1); SODIUM,NA 139 mmol/L (136-148)
--- NOTE | 2019-08-11 15:34 | CR ---
Indication: Dyspnea. Technique: Single AP portable view of the chest. Comparison: October 17, 2017. Findings: The heart is normal in size. The lungs are clear. No infiltrate, pleural effusion, or pneumothorax identified. Impression: No acute cardiopulmonary process Dictated by Genevieve Neville MD @ Aug 11 2019 3:31PM Signed by Dr. Genevieve Neville @ Aug 11 2019 3:32PM
--- NOTE | 2019-08-11 15:54 | EDM.PDOC ---
ED HPI GENERAL MEDICAL PROBLEM - General Chief Complaint: Respiratory Problem Stated Complaint: SHORTNESS OF BREATHE Time Seen by Provider: 08/11/19 15:49 Source of Information: Reports: Patient - History of Present Illness INITIAL COMMENTS - FREE TEXT/NARRATIVE: HISTORY AND PHYSICAL: History of present illness: [pt with asthma presents with SOB after being around long-haired pets, on initial exam chest is tight however much improved after duoneb, solumedrol provided, patient breathing non-labored, NAD, able to speak full sentences wo difficulty Review of systems: As per history of present illness and below otherwise all systems reviewed and negative. Past medical history: As per history of present illness and as reviewed below otherwise noncontributory. Surgical history: As per history of present illness and as reviewed below otherwise noncontributory. Social history: No reported history of drug or alcohol abuse. Family history: As per history of present illness and as reviewed below otherwise noncontributory. Physical exam: HEENT: Atraumatic, normocephalic, pupils reactive, negative for conjunctival pallor or scleral icterus, mucous membranes moist, throat clear, neck supple, nontender, trachea midline. Lungs: Clear to auscultation, breath sounds equal bilaterally, chest nontender. post duoneb and solumedrol Heart: S1S2, regular, negative for clicks, rubs, or JVD. Abdomen: Soft, nondistended, nontender. Negative for masses or hepatosplenomegaly. Negative for costovertebral tenderness. Pelvis: Stable nontender. Genitourinary: Deferred. Rectal: Deferred. Extremities: Atraumatic, negative for cords or calf pain. Neurovascular unremarkable. Neuro: Awake, alert, oriented. Cranial nerves II through XII unremarkable. Cerebellum unremarkable. Motor and sensory unremarkable throughout. Exam nonfocal. Diagnostics: [cbc, cmp, ua, trop ekg chest 1 v ] Therapeutics: [duoneb solumedrol prednisone hfa avoid pets ] Impression: [reversible airway disease] Definitive disposition and diagnosis as appropriate pending reevaluation and review of above. - Related Data Allergies Allergy/AdvReac Type Severity Reaction Status Date / Time No Known Allergies Allergy Verified 08/11/19 15:15 Home Meds: Home Meds . [No Known Home Meds] 07/25/19 [History] Past Medical History - Past Health History Medical/Surgical History: Denies Medical/Surgical History HEENT History: Reports: Allergic Rhinitis Cardiovascular History: Reports: None Respiratory History: Reports: Asthma, Pneumonia, Recurrent, Other (See Below) Other Respiratory History: has prescribed inhaler but denies any lung problems ( rare wheezings) , allergy and pet induced Gastrointestinal History: Reports: None Genitourinary History: Reports: None Musculoskeletal History: Reports: None Neurological History: Reports: None Psychiatric History: Reports: None Endocrine/Metabolic History: Reports: None Insulin Pump Model and Healthcare Project Manager: N/A Hematologic History: Reports: None Other Hematologic History: Patient states he has a "blood infection" as of June 2019 Immunologic History: Reports: None Oncologic (Cancer) History: Reports: None Dermatologic History: Reports: None - Infectious Disease History Infectious Disease History: Reports: Chicken Pox - Past Surgical History Head Surgeries/Procedures: Reports: None Musculoskeletal Surgical History: Reports: Other (See Below) Other Musculoskeletal Surgeries/Procedures:: left wrist surgery for wound closure Dermatological Surgical History: Reports: Other (See Below) Social & Family History - Family History Family Medical History: Noncontributory - Tobacco Use Smoking Status *Q: Never Smoker Second Hand Smoke Exposure: No - Caffeine Use Caffeine Use: Reports: None - Recreational Drug Use Recreational Drug Use: No ED ROS GENERAL - Review of Systems Review Of Systems: See Below ED EXAM, GENERAL - Physical Exam Exam: See Below Course - Vital Signs Last Recorded V/S: Last Vital Signs Temp 95.5 F 08/11/19 15:00 Pulse 90 08/11/19 15:00 Resp 26 H 08/11/19 15:00 BP 145/92 H 08/11/19 15:00 Pulse Ox 95 08/11/19 15:00 - Orders/Labs/Meds Orders: Active Orders 24 hr Category Date Time Status EKG Documentation Completion [RC] STAT Care 08/11/19 14:33 Active RT Aerosol Therapy [RC] ASDIRECTED Care 08/11/19 14:30 Active UA RFX KAYLIE AND CULT IF INDIC [URIN] Stat Lab 08/11/19 14:33 Ordered Sodium Chloride 0.9% [Normal Saline] 1,000 ml Med 08/11/19 14:45 Active IV STAT Medication Orders Sodium Chloride (Normal Saline) 1,000 mls @ 125 mls/hr IV STAT GENNY Last Admin: 08/11/19 15:10 Dose: 125 mls/hr Labs: Laboratory Tests 08/11/19 08/11/19 08/11/19 Range/Units 15:00 15:00 15:00 WBC 6.93 (4.0-11.0) K/uL RBC 4.99 (4.50-5.90) M/uL Hgb 14.8 (13.0-17.0) g/dL Hct 44.0 (38.0-50.0) % MCV 88.2 (80.0-98.0) fL MCH 29.7 (27.0-32.0) pg MCHC 33.6 (31.0-37.0) g/dL RDW Std Deviation 43.1 (28.0-62.0) fl RDW Coeff of Yaya 13 (11.0-15.0) % Plt Count 236 (150-400) K/uL MPV 10.20 (7.40-12.00) fL Neut % (Auto) 44.6 L (48.0-80.0) % Lymph % (Auto) 38.1 (16.0-40.0) % [place] % (Auto) 8.5 (0.0-15.0) % Eos % (Auto) 8.2 H (0.0-7.0) % Baso % (Auto) 0.6 (0.0-1.5) % Neut # (Auto) 3.1 (1.4-5.7) K/uL Lymph # (Auto) 2.6 H (0.6-2.4) K/uL [place] # (Auto) 0.6 (0.0-0.8) K/uL Eos # (Auto) 0.6 (0.0-0.7) K/uL Baso # (Auto) 0.0 (0.0-0.1) K/uL Nucleated RBC % 0.0 /100WBC Nucleated RBCs # 0 K/uL INR 1.00 Sodium 139 (136-148) mmol/L Potassium 4.1 (3.5-5.1) mmol/L Chloride 105 (98-107) mmol/L Carbon Dioxide 25.8 (21.0-32.0) mmol/L BUN 16 (7.0-18.0) mg/dL Creatinine 1.0 (0.8-1.3) mg/dL Est Cr Clr Drug Dosing 86.60 mL/min Estimated GFR (MDRD) > 60.0 ml/min Glucose 123 H (74-106) mg/dL Calcium 8.7 (8.5-10.1) mg/dL Total Bilirubin 0.3 (0.2-1.0) mg/dL AST 19 (15-37) IU/L ALT 34 (14-63) IU/L Alkaline Phosphatase 82 (46-116) U/L Troponin I < 0.050 (0.000-0.056) ng/mL Total Protein 7.1 (6.4-8.2) g/dL Albumin 3.4 (3.4-5.0) g/dL Globulin 3.7 (2.6-4.0) g/dL Albumin/Globulin Ratio 0.9 (0.9-1.6) Meds: Medications Generic Name Dose Route Start Last Admin Trade Name Freq PRN Reason Stop Dose Admin Sodium Chloride 1,000 mls @ 125 mls/hr 08/11/19 14:45 08/11/19 15:10 Normal Saline IV 125 mls/hr STAT GENNY Administration Discontinued Medications Generic Name Dose Route Start Last Admin Trade Name Freq PRN Reason Stop Dose Admin Albuterol/Ipratropium 3 ml 08/11/19 14:30 08/11/19 14:36 Duoneb 3.0-0.5 Mg/3 Ml NEB 08/11/19 14:31 3 ml ONETIME ONE Administration Methylprednisolone Sodium Succinate 125 mg 08/11/19 14:33 08/11/19 15:10 Solu-Medrol IVPUSH 08/11/19 14:34 125 mg ONETIME ONE Administration Departure - Departure Time of Disposition: 15:52 Disposition: Home, Self-Care 01 Condition: Good Clinical Impression: Reversible airways disease - Discharge Information Referrals: Marie Cox DO [Primary Care Provider] - Additional Instructions: medication as prescribed return if persist or worsen follow up primary care and complete asthma testing [facility] [address] [place] [id number] The following information is given to patients seen in the emergency department who are being discharged to home. This information is to outline your options for follow-up care. We provide all patients seen in our emergency department with a follow-up referral. The need for follow-up, as well as the timing and circumstances, are variable depending upon the specifics of your emergency department visit. If you don't have a primary care physician on staff, we will provide you with a referral. We always advise you to contact your personal physician following an emergency department visit to inform them of the circumstance of the visit and for follow-up with them and/or the need for any referrals to a consulting specialist. The emergency department will also refer you to a specialist when appropriate. This referral assures that you have the opportunity for follow-up care with a specialist. All of these measure are taken in an effort to provide you with optimal care, which includes your follow-up. Under all circumstances we always encourage you to contact your private physician who remains a resource for coordinating your care. When calling for follow-up care, please make the office aware that this follow-up is from your recent emergency room visit. If for any reason you are refused follow-up, please contact the [facility] emergency department at and asked to speak to the emergency department charge nurse. Sepsis Event Note - Evaluation Sepsis Screening Result: No Definite Risk - Focused Exam Vital Signs: Vital Signs Temp Pulse Resp BP Pulse Ox 08/11/19 15:00 95.5 F 90 26 H 145/92 H 95 Date Exam was Performed: 08/11/19 Time Exam was Performed: 15:49 - My Orders Last 24 Hours: My Active Orders 08/11/19 14:30 RT Aerosol Therapy [RC] ASDIRECTED 08/11/19 14:33 EKG Documentation Completion [RC] STAT UA RFX KAYLIE AND CULT IF INDIC [URIN] Stat 08/11/19 14:45 Sodium Chloride 0.9% [Normal Saline] 1,000 ml IV STAT - Assessment/Plan Last 24 Hours: My Active Orders 08/11/19 14:30 RT Aerosol Therapy [RC] ASDIRECTED 08/11/19 14:33 EKG Documentation Completion [RC] STAT UA RFX KAYLIE AND CULT IF INDIC [URIN] Stat 08/11/19 14:45 Sodium Chloride 0.9% [Normal Saline] 1,000 ml IV STAT
== END 2019-08-11 16:34 | disposition home or self-care (01) ==
LOC: MW.ED 14:27
DX: J98.8 Other specified respiratory disorders (principal); J45.909 Unspecified asthma, uncomplicated
CPT/HCPCS: 36415; 71045; 80053; 84484; 85025; 85610; 93005; 94640; 96361; 96374; 99285; J2930; J7030; 99284; J7620-GY

== ENCOUNTER 2021-12-18 18:08 | Emergency (ER) | payer SELFPAY ==
[2021-12-18] MEDS ORDERED: Penicillin G Benzathine 1,200,000 Units/2 ML Syringe IM STA (21:36)
[2021-12-18 22:43] VITALS: BP 124/65; PULSE 72
== END 2021-12-18 22:42 | disposition home or self-care (01) ==
LOC: MW.ED 18:08
DX: Z20.2 Contact with and (suspected) exposure to infections with a predominantly sexual mode of transmission (principal)
CPT/HCPCS: 96372; 99283; J0561

== ENCOUNTER 2022-08-12 08:32 | Emergency (ER) | payer SELFPAY ==
[2022-08-12 08:41] VITALS: BP 132/99; PULSE 99
[2022-08-12 09:26] LABS: CORONAVIRUS COVID-19 NAA NEGATIVE (NEGATIVE); INFLUENZA A NAA NEGATIVE (NEGATIVE); INFLUENZA B NAA NEGATIVE (NEGATIVE); RESPIRATORY SYNCYTIAL VIR NAA NEGATIVE (NEGATIVE)
== END 2022-08-12 10:49 | disposition home or self-care (01) ==
LOC: MW.ED 08:32
DX: R05.1 Acute cough (principal); Z20.822 Contact with and (suspected) exposure to COVID-19
CPT/HCPCS: 0241U; 71046; 99283